=== PATIENT | female | born 1985 | race Two or more races ===

== ENCOUNTER → 2017-10-09 11:15 | Outpatient (CLI) | payer SELFPAY ==
[2017-10-10 10:37] LABS: Group B Strep DNA By PCR Negative (Negative); Internal Control PASS; Probe Check PASS; Specimen Processing Control PASS
== END ==
PROVIDERS: Visit Provider Obstetrics & Gynecology
DX: Z36.85 Encounter for antenatal screening for Streptococcus B (principal)
CPT/HCPCS: 87081; 87653

== ENCOUNTER 2017-10-29 04:26 | Inpatient (IN) | payer SELFPAY ==
[2017-10-29] MEDS: Lactated Ringers 1,000 ML 50 ML IV (04:40)
[2017-10-29 04:43] VITALS: BMI 31.5
[2017-10-29 05:08] LABS: Hematocrit 28.5 % (37-47); Hemoglobin 9.2 g/dl (12.0-15.0); Mean Corp Hgb Conc 32.3 g/gl (32-36); Mean Corpuscular Hgb 28.8 pg (27.0-32.0); Mean Corpuscular Volume 89.3 fL (81-99); Mean Platelet Vol. 10.9 fl (6.2-12.0); Platelet Count 175 K/mm3 (150-450); RBC Distribution Width CV 13.5 % (11.6-14.6); RBC Distribution Width SD 42.4 fl (35.1-43.9); Red Blood Count 3.19 M/mm3 (4.2-5.4); White Blood Count 12.1 K/mm3 (4.4-11.0)
[2017-10-29 05:09] LABS: Scan Indicated on CBC? Y/N NO
[2017-10-29 05:27] LABS: AST(SGOT) 147 U/L (15-37); Alanine Aminotransfer ALT/SGPT 215 U/L (13-56); Creatinine, Serum 0.79 mg/dL (0.55-1.02); EST Glomerular Filtration Rate 89 mL/min (>60); Est Glom Filt Rate - Afr Amer 108 mL/min (>60); Estimated Creatinine Clearance 84.57 ml/min; Uric Acid 5.7 mg/dL (2.6-6.0)
[2017-10-29 05:51] LABS: International Normalized Ratio 0.9; Prothrombin Time (Protime)PT. 12.1 SECONDS (11.7-14.9)
[2017-10-29 05:52] LABS: Partial Thromboplast Time 26.9 Seconds (24.1-36.2)
[2017-10-29 06:08] LABS: Protein, Urine (Random) 71.1 mg/dL (<11.9); Protein:Creat Ratio 391 mg/g CRE (0-200)
[2017-10-29] MEDS: Oxytocin 30 units/NS 500 ml 30 UNITS/500 ML IV.SOLN 334 UNITS IV (07:05)
--- NOTE | 2017-10-29 07:26 | PCM.OB.VAG ---
Vaginal Delivery Maternal Presentation: Active Labor Presented at 38w6d ega in active labor. BPs elevated with elevated LFTs. No symptoms of preeclampsia. Amniotic Membrane Rupture Type: Artificial Rupture of Membrane time: 629 Amniotic Fluid Description: Clear Final JAKE: 11/06/17 Final JAKE Source: [place] <20 weeks Gestational age: 38 Weeks and 6 Days Date of Procedure: 10/29/17 Pre-Operative Diagnosis: labor Post-Operative Diagnosis: labor Surgery/ Procedure Performed: Spontaneous Vaginal Delivery Type of Anesthesia: None Description of Procedure: Presented at 6 cm dilated with regular contractions. Progressed to FD over 2 hours then pushed for about 15 minutes to deliver a live female with apgars 8/9. Delayed cord clamping was employed. The placenta delivered spontaneously intact with a centrally located 3VC. The uterus contracted well. A small first degree posterior vaginal tear was repaired with a single figure of eight stitch of 2-0 Vicryl. Presentation: Vertex Placental Delivery Description: Spontaneous Placenta Disposition: [facility] Percentage of Placenta Abruption: 0 Cord Vessel Description: 3 Vessels Nuchal Cord Compression: Without compression Cord Entanglement: None Estimated Blood Loss: 400cc Infant A gender: Female (1 minute): 8 (5 minute): 9 Episiotomy Description: None Laceration: Midline, Vaginal Extension/lac, 1st degree Medications given after delivery: IV Pitocin Complications: None
--- NOTE | 2017-10-29 07:32 | DCINST_ITS ---
Discharge Diet: No Restrictions Discharge Activity: Return to Normal Activity, May Drive, May Shower Return to work on:: 12/14/17 May shower in (days): 0 May resume sexual activity in: 4-6 weeks Call your doctor if your incision/area has: Sudden Increased Bleeding, Increased Pain/ Swelling, Increased Redness, Foul Smelling Discharge Call your doctor if you observe: Fever of 101 or Higher, Inability to urinate, Inability to have a bowel movement, Using more than one pad per hour, Shortness of breath, Chest pain, Calf discomfort, Uncontrolled pain Cleanse incision/area with: Soap & Water Additional Instructions: If you experience any of the following, contact your healthcare provider. * Bleeding that soaks a pad every hour for 2 hours * Fever 100.4 or higher * Unrelieved incision or abdominal pain * Swelling, redness, discharge or bleeding from your incision or episiotomy site * Your incision begins to separate * Problems urinating (including inability to urinate or burning while urinating) . * Visual changes * Severe headache * Flu-like symptoms * Pain or redness in one of both of your breasts * Pain, warmth, tenderness or swelling in your legs, especially the calf area * Frequent nausea and vomiting * Symptoms of depression or anxiety If you experience any of the following, call 911 or go to the nearest Emergency Room. * Chest pain * Problems breathing * Seizure activity * Partial or complete paralysis of a body part, slurred speech, weakness or drooping of the face, or a sudden inability to walk or hold your balance Allergies/Adverse Reactions: Allergies Penicillins Allergy (Verified 10/29/17 05:23) Other states was childhood reaction Medications to take at Discharge Ibuprofen 600 mg PO 4X/DAY #30 tab 10/29/17 Vits [Prenatabs FA ] 1 tablet PO DAILY 10/29/17 The following prescriptions were given: Ibuprofen 600 mg PO 4X/DAY #30 tab Please Follow Up With: Dhruv Mon MD When: 6 weeks Test Results: Test results from this visit will be discussed in further detail at your follow- up appointment, if applicable. Proposed Discharge Date: 10/31/17
[2017-10-29] MEDS: 0.9% Saline Lock 10 ML Syringe IV (07:35)
[2017-10-29 12:00] VITALS: BP 132/87; PULSE 86; RESP 16; TEMP 37.2
[2017-10-29] MEDS: Prenatal Vits Tablet 1 TABLET PO (16:33)
[2017-10-29] MEDS: Ibuprofen 600 MG Tablet PO ×2 (16:33→22:34)
[2017-10-29 20:24] VITALS: BP 148/80; PULSE 66; RESP 18; TEMP 36.6
[2017-10-30] VITALS: BP 140/81; PULSE 68; RESP 18; TEMP 36.4
[2017-10-30 04:10] VITALS: BP 142/84; PULSE 66; RESP 18; TEMP 36.3
[2017-10-30] MEDS: Ibuprofen 600 MG Tablet PO ×2 (05:08→12:37)
[2017-10-30 05:16] LABS: Hematocrit 24.5 % (37-47); Mean Corp Hgb Conc 32.7 g/gl (32-36); Mean Corpuscular Hgb 29.4 pg (27.0-32.0); Mean Corpuscular Volume 90.1 fL (81-99); Mean Platelet Vol. 11.2 fl (6.2-12.0); Platelet Count 191 K/mm3 (150-450); RBC Distribution Width CV 13.6 % (11.6-14.6); RBC Distribution Width SD 42.7 fl (35.1-43.9); Red Blood Count 2.72 M/mm3 (4.2-5.4); White Blood Count 15.3 K/mm3 (4.4-11.0)
[2017-10-30 05:18] LABS: AST(SGOT) 143 U/L (15-37); Alanine Aminotransfer ALT/SGPT 216 U/L (13-56); Albumin, Serum 1.9 g/dL (3.2-5.0); Alkaline Phosphatase 206 U/L (45-117); Bilirubin, Direct 0.21 mg/dL (0.00-0.30); Globulin 3.7 g/dL (2.2-4.2); Protein, Total 5.6 g/dL (6.4-8.2); Scan Indicated on CBC? Y/N NO; Uric Acid 5.7 mg/dL (2.6-6.0)
[2017-10-30 05:25] LABS: International Normalized Ratio 0.8; Prothrombin Time (Protime)PT. 11.5 SECONDS (11.7-14.9)
[2017-10-30 05:26] LABS: Partial Thromboplast Time 25.5 Seconds (24.1-36.2)
[2017-10-30 08:00] VITALS: BP 132/79; PULSE 68; RESP 16; TEMP 36.8
--- NOTE | 2017-10-30 08:43 | PCM.PN.OB ---
Subjective: No complaints. Bleeding light. breast feeding. Objective: Afeb VSS BP modestly elevated - Physical Exam General: Alert, Oriented x3, Cooperative, No apparent distress Lungs: Clear to auscultation, Normal air movement Cardiovascular: Regular rate, Regular Rhythm Abdomen: Soft, Non Tender, Non-Distended, - - Fundus firm nontender Extremities: No edema Skin: No rashes Neurological: Neuro grossly intact Psych/Mental Status: Normal Affect Comment: Lochia light Vital Signs Temp Pulse Resp BP 97.4 F L 66 18 142/84 H 10/30/17 04:10 10/30/17 04:10 10/30/17 04:10 10/30/17 04:10 Oxygen Delivery Method Room Air Weight: 178 lb 2.136 oz Body Mass Index (BMI) 31.5 Laboratory Tests Past 24 Hrs 10/29/17 10/30/17 10/30/17 13:01 04:50 04:50 WBC 15.3 H RBC 2.72 L Hgb 8.0 L Hct 24.5 L MCV 90.1 MCH 29.4 MCHC 32.7 RDW 13.6 RDW Differential 42.7 Plt Count 191 MPV 11.2 PT Cancelled INR Cancelled APTT Cancelled Uric Acid Total Bilirubin Direct Bilirubin AST ALT Alkaline Phosphatase Total Protein Albumin Globulin Screen NEGATIVE Baby's Blood Type O POSITIVE Baby's POWER NEGATIVE 10/30/17 10/30/17 04:50 05:10 WBC RBC Hgb Hct MCV MCH MCHC RDW RDW Differential Plt Count MPV PT 11.5 L INR 0.8 APTT 25.5 Uric Acid 5.7 Total Bilirubin 0.30 Direct Bilirubin 0.21 AST 143 H ALT 216 H Alkaline Phosphatase 206 H Total Protein 5.6 L Albumin 1.9 L Globulin 3.7 Screen Baby's Blood Type Baby's POWER Medical Necessity - Tobacco Use Smoking Status: Never smoker Assessment/Plan Doing well on PP day#1. LFTs stable today. No signs of preeclampsia other than mildly elevated BPs. No headaches.
[2017-10-30] MEDS: Prenatal Vits Tablet 1 TABLET PO (12:40)
[2017-10-30 13:00] VITALS: BP 140/92; PULSE 78; RESP 18; TEMP 36.9
[2017-10-30 13:30] VITALS: BP 137/88
[2017-10-30 20:05] VITALS: BP 139/85; PULSE 77; RESP 16; TEMP 36.5; O2SAT 100
[2017-10-31 02:45] VITALS: BP 146/86; PULSE 70; RESP 16; TEMP 36.4; O2SAT 96
[2017-10-31 06:18] LABS: ALB/GLOB Ratio 0.5 RATIO (0.9-2.4); AST(SGOT) 94 U/L (15-37); Alanine Aminotransfer ALT/SGPT 182 U/L (13-56); Albumin, Serum 2.1 g/dL (3.2-5.0); Alkaline Phosphatase 218 U/L (45-117); Anion Gap 10 (5-15); BUN 10 mg/dL (7-18); BUN/Creat Ratio 13.8 RATIO (10-20); Calcium,Total 8.3 mg/dL (8.5-10.1); Chloride 108 mmol/L (98-107); Creatinine, Serum 0.72 mg/dL (0.55-1.02); EST Glomerular Filtration Rate 99 mL/min (>60); Est Glom Filt Rate - Afr Amer 120 mL/min (>60); Estimated Creatinine Clearance 92.79 ml/min; Globulin 3.9 g/dL (2.2-4.2); Glucose 74 mg/dL (74-106); Potassium 4.2 mmol/L (3.5-5.1); Sodium Level 142 mmol/L (136-145)
--- NOTE | 2017-10-31 08:04 | PCM.PN.OB ---
Subjective: Pt without complaints. going well. Denies PIH sxs. - Physical Exam Vital Signs Temp Pulse Resp BP Pulse Ox 97.6 F L 70 16 146/86 H 96 10/31/17 02:45 10/31/17 02:45 10/31/17 02:45 10/31/17 02:45 10/31/17 02:45 Oxygen Delivery Method Room Air Weight: 178 lb 2.136 oz Body Mass Index (BMI) 31.5 Laboratory Tests Past 24 Hrs 10/31/17 05:30 Sodium 142 Potassium 4.2 Chloride 108 H Carbon Dioxide 24.0 Anion Gap 10 BUN 10 Creatinine 0.72 Estim Creat Clear Calc 92.79 Est GFR (MDRD) Af Amer 120 Est GFR (MDRD) Non-Af 99 BUN/Creatinine Ratio 13.8 Glucose 74 Calcium 8.3 L Total Bilirubin 0.20 AST 94 H ALT 182 H Alkaline Phosphatase 218 H Total Protein 6.0 L Albumin 2.1 L Globulin 3.9 Albumin/Globulin Ratio 0.5 L LFTs normalizing. Medical Necessity - Tobacco Use Smoking Status: Never smoker Assessment/Plan Doing well. Plans to follow BPs at home and call with elevation. Routine homegoing instructions given.
[2017-10-31 09:43] VITALS: BP 142/89; PULSE 76; RESP 16; TEMP 36.4; O2SAT 97
[2017-10-31] MEDS: Ibuprofen 600 MG Tablet PO (09:56)
[2017-10-31] MEDS: Prenatal Vits Tablet 1 TABLET PO (10:23)
== END 2017-10-31 11:55 | disposition home or self-care (01) | DRG 775 ==
PROVIDERS: Admitting Provider Obstetrics & Gynecology; Visit Provider Obstetrics & Gynecology
DX: O13.3 Gestational [pregnancy-induced] hypertension without significant proteinuria, third trimester (principal); O26.613 Liver and biliary tract disorders in pregnancy, third trimester; R94.5 Abnormal results of liver function studies; O70.0 First degree perineal laceration during delivery; Z3A.38 38 weeks gestation of pregnancy; Z37.0 Single live birth
CPT/HCPCS: 59025; 59050; 80053; 80076; 82565; 82570; 84156; 84450; 84460; 84550; 85027; 85461; 85610; 85730; 86850; 86900; 90384; 99218; J7120; A4216; G0378; J2790